=== PATIENT | male | born 1940 | race Caucasian/White ===

== ENCOUNTER 2024-07-29 11:20 | Inpatient (IN) | payer MEDICARE, OTHER, SELFPAY ==
[2024-07-29] VITALS (11 sets, daily range): BP systolic 101–146; BP diastolic 65–79; BMI 25.0
--- NOTE | 2024-07-29 13:05 | HPS.HSE ---
Family Physician
-
Family Physician: Stacey Guzman
Chief Complaint
-
Transfer from [facility]
History of Present Illness
83-year-old man transferred from [facility] for cardiac catheterization. Patient presented with intermittent chest pain for past several days prior to arrival. He also had exertional discomfort. Patient stated that he had severe pain in
his chest on [place] which prompted him to come to the hospital. He has been having some pains in the chest for the past week while working out in the gym.
Medical History
Past Medical History
Past Medical History: Reports Other
Additional Past Medical History:
Migraines, chronic back pain, COPD, angina, arthritis, smoldering myeloma
Past Surgical History: Reports Other
Additional Past Surgical History:
CABG at [facility] in 1999, appendectomy, knee surgery, Mohs procedure
Social History
Tobacco: Former Smoker
Alcohol: Daily (2 glasses of wine every day)
Drug: None
Living: With Family
Employment: Retired
Family History
Family History: Not pertinent
Allergies / Home Medications
Allergies reflects when Allergies were last updated in [employer].
Home Medications with original date entered in [employer]
Allergy/Medication List:
Allergies
Allergy/AdvReac Type Severity Reaction Status Date / Time
No Known Allergies Allergy Unverified 05/14/23 10:52
Home Medications
amlodipine 10 mg tablet 10 mg PO DAILY 05/14/23
aspirin 325 mg tablet 325 mg PO DAILY 05/14/23
atenolol 50 mg tablet 50 mg PO DAILY 05/14/23
atorvastatin 40 mg tablet (Lipitor) 40 mg PO QPM 05/14/23
famotidine 20 mg tablet (Pepcid AC Maximum Strength) 20 mg PO HS #1 tab 05/14/23
levothyroxine 50 mcg tablet 50 mcg PO DAILY 05/14/23
losartan 25 mg tablet 25 mg PO DAILY 05/14/23
Review of Systems
-
A 12 point ROS was completed and negative except as noted: Yes
Cardiac: Reports Chest Pain; Denies Palpitations
Physical Exam
Vital Signs
Vital Signs
Temp Resp Pulse Ox
97.7 F 18 96
07/29/24 11:32 07/29/24 11:32 07/29/24 11:32
Physical Exam
General: Comfortable
Respiratory: Clear
Cardiac: S1/S2, Regular Rhythm and Murmur (sm )
GI: Soft and Non Tender
Neuro: AO x 3 and Nonfocal/grossly intact
Psych: Intact Judgment/Insight
Impression/Plan
-
IMPRESSION/PLAN:
EKG sinus rhythm with first-degree AV block QTc 486
# [place]
Coronary artery disease-continue aspirin, statin, beta-alice, losartan
Patient was given aspirin, heparin drip in the ER and Nitropatch at [facility] he did have some ST depressions on the EKG in the ER
Cardiac cath April 2023 with creek vessel disease patent BAXTER, patent SVG to OM 2, patent graft and RPL 2, patent graft to PDA with luminal irregularities
Myocardial perfusion study April 2023 localized area of anteroapical scar and ischemia
24 negative amyloid scan
Echo April 2023 normal LV function, borderline RV function, mild RA dilatation, mild MR, moderate TR, mild pulmonary hypertension
For cardiac catheterization-timing per cardiology, Keep NPO
Admitted to IVU. Check EKG and troponin
IV Heparin gtt
Mechanical Product Design Engineer is Dr. Terry Lewis
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
# Mild MR, moderate TR
# Hypertension-continue losartan, atenolol and amlodipine
# Mild pulmonary hypertension
# Hypothyroidism-continue Synthroid
# COPD-stable
# CKD stage II
# Hyperlipidemia-continue statin
# History of migraines
# Carotid artery ultrasound 09/12/2022-small amount of plaque in the left carotid without stenosis. Right carotid without disease
# History of TIA-continue aspirin and statin
# Ex-smoker
# DVT prophylaxis- heparin
# CODE STATUS-Full CODE
Discussed with cardiology
Labs ordered
--- NOTE | 2024-07-29 13:38 | CM ---
Chart reviewed. Patient is independent of ADLS, lives with his in a 2 [address], 2 [address], 0 DME. Plan is for the patient to return home. CM to follow
--- NOTE | 2024-07-29 13:45 | W.PN.CARDCBS ---
Today's Communication / Plan
-
repeat labs now, IV hydration prior to cath this afternoon
Impression / Plan
-
This is a summary, see scanned cardiology consult
PCP: Stacey Guzman,
CDY: Terry Lewis MD
84-year-old male followed by Dr. Lewis who noted that a year ago that he started having increased symptoms of shortness of breath with exertion such as exercising at the gym. He underwent a cardiac catheterization that demonstrated stable known
disease with patent grafts. Medical management at that point. The patient states that he was actually pretty good up until yesterday when he was sitting in a movie theater and started to develop retrosternal chest discomfort that kept getting
worse he started getting clammy and he started having some discomfort go down his left arm at that point he thought something was wrong and came to the emergency room at [facility] on 07/27 for further evaluation. In the ED he was administered sublingual
nitroglycerin and started on nitroglycerin patch he does note that there was improvement in his symptoms. His troponin x3 was negative. He is transferred today for [facility].
Impression/Plan:
Acute coronary syndrome:
Patient has known coronary artery disease with ST-T wave changes on his presentation to the ED which resolved after nitrates and IV heparin. Discussed with the patient and feel repeat cardiac catheterization is warranted. He is transferred here
today for [facility]. Continue IV heparin, continue isosorbide, atenolol, amlodipine, ASA 81mg given this am
Hyperlipidemia - LDL 89 02/2024, Increase atorvastatin to 80 mg daily, add Zetia, check Lipid profile in am
Acute on chronic kidney disease stage 2 - Cr 1.15 -> 1.41 today, recheck BMP now, IV hydration as pt NPO for [facility]
PAST MEDICAL/SURGICAL HISTORY
Atrial fibrillation agueda-op
3-vessel coronary artery stenosis:
CAB: BAXTER to LAD and D1, SVG to OM1, SVG to PDA and LV branch of RCA
Mitral regurgitation mild
Tricuspid regurgitation moderate
Systemic hypertension
Pulmonary hypertension mild.
Chronic obstructive pulmonary disease moderate.
Colonic diverticulosis.
Chronic kidney disease, stage 2 creatinine 1.19.
Hyperlipidemia with low HDL
Adverse effect of drug therapy viagra induced headaches.
Endocrine disorder low testosterone level.
Neurologic disorder Migraines
Transient ischemic attack.
Nicotine dependence inactive
Male erectile disorder.
Gastrointestinal hemorrhage with increased aspirin
Carotid ultrasound 09/12/22: small amount of plaque in left carotid without stenosis
right carotid without disease-unchanged from 2019.
Cardiac catheterization was performed 05/14/23:
80% ostial LAD stenosis with 100% mid stenosis, D1-90% stenosis distal to BAXTER
75% proximal LCx
85% mid RCA stenosis with 60% stenosis of distal RCA and posterior branch
Patent BAXTER (sequential) to LAD+D1
Patent SVG to m2 with luminal irregularities
Patent graft to RPL2
Patent graft to PDA with luminal irregularities
149/17-LV
normal systolic function
Echocardiogram was performed 05/09/23-Normal LV function
borderline RV function
mild RA dilation
mild MR
moderate TR with mild PHT.
Cardiac Isotope Imaging:
Myocardial perfusion study conclusions 05/09/23: small localized area of bogdan-apical scar and ischemia
LVEF (76)%.
07/29/23: Negative Amyloid scan.
Progress Note - Fitter Placer
Subjective
Date of Service: July 29, 2024
denies cp, sob
Objective
Vital Signs and I&O:
Vital Signs
Temp Resp Pulse Ox
97.7 F 18 96
07/29/24 11:32 07/29/24 11:32 07/29/24 11:32
Vital Signs
Temp Resp Pulse Ox
97.7 F 18 96
07/29/24 11:32 07/29/24 11:32 07/29/24 11:32
Physical Exam
Physical Exam
NAD< AOX3
S1, S2, RRR, no murmur
CTAB, non labored, no wheeze
SNTND Bsx4
No LE edema, +2DP pulses b/l
[2024-07-29 14:08] LABS: Hematocrit 34.4 % (39.0-52.0); Mean Corp Hgb Conc. 34.9 g/dL (33.0-37.0); Mean Corpuscular Volume 97.5 fL (80.0-94.0); Platelet Count 202 10^3/uL (130-400); Red Blood Cell Count 3.53 10^6/uL (4.70-6.10); White Blood Cell Count 5.7 10^3/uL (4.8-10.8)
[2024-07-29] MEDS: NSS 500 IV (14:23)
[2024-07-29 14:33] LABS: Blood Urea Nitrogen 28 mg/dl (9-20); Calcium 9.5 mg/dl (8.4-10.2); Carbon Dioxide 20 mmol/L (22-30); Chloride 102 mmol/L (98-107); Estimated Creatinine Clearance 44 ml/min; Glucose 124 mg/dl (70-99); Magnesium 2.2 mg/dl (1.6-2.3); Potassium 4.5 mmol/L (3.5-5.1); Sodium 134 mmol/L (135-145); eGFR 53.84
[2024-07-29 14:34] LABS: Troponin I < 0.012 ng/ml
--- NOTE | 2024-07-29 14:51 | PTCARENOTE ---
Rec'd pt from transfer service. Pt ambulated from stretcher to bed w/ steady gait. Heparin gtt infusing at 800 units/hr. Pt currently has no complaints CP/discomfort. Oriented to room. Currently in bed; call doris w/in reach.
--- NOTE | 2024-07-29 14:56 | PTCARENOTE ---
Rec'd pt from transfer service. Pt ambulated from stretcher to bed w/ steady gait. Pt currently has no complaints CP/discomfort. Oriented to room. Currently in bed; call doris w/in reach.
[2024-07-29 16:39] LABS: ACT-LR - POC 313 Seconds (116-155)
--- NOTE | 2024-07-29 17:31 | ITS.CL.ANGIO ---
Instrumentation Specialist - Angioplasty
Angioplasty
Procedure Report:
CARDIAC CATHETERIZATION REPORT
Date of Procedure: 07/29/2024
Referring: Dr. Rhoda Muniz MD
Indication: unstable angina
PROCEDURE(S)
1. left heart catheterization
2. coronary angiography
3. bypass coronary angiography
4. PCI with stent to saphenous vein graft
ACCESS: 6F right distal left radial artery (closure: radial band)
CATHETERS
1. 6F DARLENE
2. 6F JL4
3. 6F JR4
4. 6F AL1 guide
HEMODYNAMIC DATA
LV 132/12 (EDP 26) mmHg
AO 137/69 (mean 89) mmHg
CORONARY ANGIOGRAPHY
Dominance: Right
LM: large vessel with mild disease
LAD: large vessel giving rise to a small D1 and large D2. There is moderate to severe calcific disease throughout the proximal to mid vessel. The D2 and mid to distal LAD fills briskly from the BAXTER. The D2 has severe proximal stenosis but also
fills briskly via antegrade flow.
LCx: large vessel giving rise to a large branching OM1. There is severe disease in the proximal LCx. There is TIMI3 flow in the larger superior limb and TIMI2 flow in the two smaller inferior limbs.
RCA: Large vessel giving rise to a large RPDA and large RPL system. There is severe disease in the proximal to mid vessel with the RPDA and RPL supplied via brisk flow from the SVG.
BYPASS GRAFT ANGIOGRAPHY:
BAXTER-D2-LAD: the BAXTER is taken as a pedicle and forms an anastomosis with the D2 and then the mid-LAD. The BAXTER is widely patent, providing brisk flow to the D2 and LAD.
SVG-RPDA: The SVG-RPDA is widely patent and provides antegrade flow to the RPDA and a large RPL system. There is a 30% stenosis in the proximal aspect of the graft.
SVG-OM1: The SVG to OM1 has a subtotal occlusion in the distal aspect of the graft with FELICIANO I-II flow distally.
PCI to SVG-OM1
Heparin was administered to achieve ACT greater than 300. The SVG to OM1 was engaged with a 6 [place] AL-1 guide catheter. There was felt to be insufficient distal landing zone for filter basket. A Runthrough wire was unable to pass the stenosis and
was left in place for support while a Whisper wire was used to successfully cross the stenosis and was placed in the distal OM1. Direct stenting was performed with a 3.5x22 mm [place] SUKI. Despite the focal nature of the lesion, this longer
stent was selected in order to minimize chance of distal embolization of graft material. The stent was deployed at 16 nurys. There was significant waist at the lesion site. This was post-dilated to 18 nurys for 30 seconds with a 3.5x15 mm NC balloon
with near resolution of the waist. There was observed to be excellent FELICIANO-3 flow in the OM system, with return of flow to a branch that previously had TIMI0 flow via SVG injection. The wire and guide were removed and a TR band placed. The patient
was loaded with 600 mg of Plavix.
RADIATION: dose 866 mGy; DAP 58.7 Gy*cm2; fluoroscopy time 15.8 min
CONCLUSIONS
1. Single-vessel obstructive coronary artery disease status post CABG. Culprit lesion for patient's unstable angina identified as a subtotally occluded SVG to OM1.
2. Successful PCI to the SVG to OM1 with placement of a 3.5 x 22 mm [place] drug-eluting stent postdilated to 18 mmHg with an NC balloon.
3. Elevated LV filling pressure and no aortic stenosis on hemodynamic pullback.
RECOMMENDATIONS
1. expectant management after cardiac catheterization via left distal radial approach
2. aggressive secondary prevention of coronary artery disease
3. DAPT with Plavix for 1 year
Copy to: Dr. Rhoda Lewis MD (textile pin worker); [ ] (PCP)
Signed: Oren Sultana MD, PhD
[2024-07-29] MEDS: LIPITOR 80 MG PO (17:50)
[2024-07-29] MEDS: TYLENOL 650 MG PO (20:51)
[2024-07-29] MEDS: PEPCID 20 MG PO (21:35)
--- NOTE | 2024-07-30 00:22 | PTCARENOTE ---
Rec'd pt at change of shift. Pt AAO*3, VSS, and in NSR on TELE monitor. Pt reports a mild headache and Tylenol given as ordered (see mar). Pt denies chest pain or discomfort and agrees to LUE restriction. Left hand radial site CDI. Pt currently
resting with call george in reach.
[2024-07-30 02:04] VITALS: BP 128/69
[2024-07-30 02:07] VITALS: BMI 24.9
[2024-07-30 02:47] LABS: Hematocrit 30.9 % (39.0-52.0); Hemoglobin 10.8 g/dL (13.0-18.0); Mean Corpuscular Hgb 34.4 pg (27.0-31.0); Mean Corpuscular Volume 98.4 fL (80.0-94.0); Mean Platelet Volume 10.1 fL (7.4-10.4); Platelet Count 192 10^3/uL (130-400); Red Blood Cell Count 3.14 10^6/uL (4.70-6.10); Red Cell Dist. Width 12.9 % (11.5-14.5); White Blood Cell Count 5.6 10^3/uL (4.8-10.8)
[2024-07-30 03:02] LABS: Blood Urea Nitrogen 23 mg/dl (9-20); Calcium 8.8 mg/dl (8.4-10.2); Carbon Dioxide 19 mmol/L (22-30); Chloride 105 mmol/L (98-107); Estimated Creatinine Clearance 48 ml/min; Glucose 93 mg/dl (70-99); HDL Cholesterol 43 mg/dl; LDL Cholesterol, Calculated 29 mg/dl; Potassium 4.1 mmol/L (3.5-5.1); Sodium 136 mmol/L (135-145); Total Cholesterol 109 mg/dl (50-199); Triglyceride 185 mg/dl (10-149); Very Low Density Lipoprotein 37 mg/dl (0-30); eGFR 59.26
[2024-07-30] MEDS: SYNTHROID 50 MCG PO (06:14)
[2024-07-30 07:21] VITALS: BP 129/68
[2024-07-30] MEDS: TENORMIN 50 MG PO (08:18)
[2024-07-30] MEDS: COZAAR 25 MG PO (08:18)
[2024-07-30] MEDS: PLAVIX 75 MG PO (08:18)
[2024-07-30] MEDS: LOW STRENGTH ASPIRIN 81 MG PO (08:18)
[2024-07-30] MEDS: NORVASC 10 MG PO (08:18)
--- NOTE | 2024-07-30 09:32 | CON.CAR ---
Consultation
Consultation Request
Date/Time Consultation Requested: 07/30/2024
Date/Time Consultation Performed: 07/30/2024
Requesting Provider: Dr. Emmy Lopez
Performing Provider: Dr. Eriberto Sultana
Reason for Consultation: unstable angina
Medical History
-
History of Present Illness:
84-year-old male with a past medical history significant for coronary artery disease status post CABG, hypertension, mild renal insufficiency, and chronic headaches, followed by Dr. Lewis, who noted that a year ago that he started having
increased symptoms of shortness of breath with exertion such as exercising at the gym. He underwent a cardiac catheterization that demonstrated stable known disease with patent grafts. Medical management was recommended at that point.
He was feeling well until the day prior to presentation when he was sitting in a movie theater and started to develop retrosternal chest discomfort with associated diaphoresis and L arm radiation. He presented to the emergency room at [facility] on 07/27
for further evaluation. In the ED he was administered sublingual nitroglycerin and started on nitroglycerin patch with improvement in his symptoms. His troponin x3 was negative. He is transferred 07/29/2023 today for [facility] which demonstrate new
sub-total occlusion of the SVG-OM. This was successfully stented DESx1 with hoahaoism of normal flow. Overnight, the patient has done well with no further symptoms.
Cardiac catheterization was performed 05/14/23:
80% ostial LAD stenosis with 100% mid stenosis, D1-90% stenosis distal to BAXTER
75% proximal LCx
85% mid RCA stenosis with 60% stenosis of distal RCA and posterior branch
Patent BAXTER (sequential) to LAD+D1
Patent SVG to m2 with luminal irregularities
Patent graft to RPL2
Patent graft to PDA with luminal irregularities
149/17-LV
normal systolic function
Echocardiogram was performed 05/09/23-Normal LV function
borderline RV function
mild RA dilation
mild MR
moderate TR with mild PHT.
Cardiac Isotope Imaging:
Myocardial perfusion study conclusions 05/09/23: small localized area of bogdan-apical scar and ischemia
LVEF (76)%.
07/29/23: Negative Amyloid scan.
Past Medical History
Past Medical History: CAD and HTN
Social History
Tobacco: Non-Smoker
Allergies / Home Medications
Allergy/AdvReac Type Severity Reaction Status Date / Time
No Known Allergies Allergy Unverified 05/14/23 10:52
�Medication �Instructions �Recorded �Confirmed �Type
amlodipine 10 mg tablet 10 mg PO DAILY 05/14/23 07/29/24 History
atenolol 50 mg tablet 50 mg PO DAILY 05/14/23 07/29/24 History
atorvastatin 40 mg tablet (Lipitor) 40 mg PO QPM 05/14/23 07/29/24 History
famotidine 20 mg tablet (Pepcid AC 20 mg PO HS #1 tab 05/14/23 07/29/24 Rx
Maximum Strength)
levothyroxine 50 mcg tablet 50 mcg PO DAILY 05/14/23 07/29/24 History
losartan 25 mg tablet 25 mg PO DAILY 05/14/23 07/29/24 History
aspirin 81 mg chewable tablet 81 mg PO DAILY 07/29/24 07/29/24 History
Review of Systems
-
Cardiac: Chest Pain and Diaphoresis
Physical Exam
Vital Signs
Temp Pulse Resp BP Pulse Ox
36.9 C 68 20 128/69 98
07/30/24 07:19 07/30/24 06:00 07/30/24 07:19 07/30/24 02:04 07/30/24 07:19
Lab Results
07/30/24 02:29
07/30/24 02:29
Troponin I Cancelled 07/29/24 19:15
Physical Exam
General: Well Developed
HEENT: Normocephalic
Respiratory: Clear
Cardiac: S1/S2 and Regular Rhythm
Skin: Warm
Neuro: AO x 3
Impression / Plan
-
84 year old man with prior CABG presenting with episode of typical angina at rest but normal troponin, found to have sub-total occlusion of SVG-OM status post sucessful PCI.
CAD s/p CABG, s/p PCI with SUKI to SVG-OM1: doing well post PCI, cont. ASA/plavix for 1 year, then ASA for life
Hyperlipidemia - LDL 29 today, continue current therapy
Hypertension - controlled, cont. current home regiman
Acute on chronic kidney disease stage 2 - received post-cath fluids, Cr returned to 1.2 this morning
patient is stable for discharge today and knows to follow up with Dr. Lewis in the next several weeks.
Data Reviewed
-
EKG: Tracing Personally Visualized and interpreted
Labs: Labs Reviewed by me
--- NOTE | 2024-07-30 09:59 | W.PN.HOSP.TC ---
Today's Communication/Plan
-
Discharge
Assessment / Plan
Assessment / Plan
CVS: S1-S2 normal, systolic murmur at apex
Chest: CTA B/L
Abdomen: Soft, NT / Bowel sounds present
Extremities: No edema, left radial site looks okay. Pulses good
CERTIFICATION TECHNICIAN: Non focal exam
Cardiac cath 6-87-vosypg-vessel obstructive coronary disease with culprit lesion SVG to OM1 stenosis/occlusion. Stent placed. Dual antiplatelets for 1 year. Patient aware
# [place]
Coronary artery disease-continue aspirin, Plavix, statin, beta-alice, losartan
Cardiac cath 70-[id number] obstructive coronary disease with culprit lesion SVG to OM1 stenosis/occlusion. Stent placed. Dual antiplatelets for 1 year. Patient aware
Cardiac cath April 2023 with [place] vessel disease patent BAXTER, patent SVG to OM 2, patent graft and RPL 2, patent graft to PDA with luminal irregularities
Myocardial perfusion study April 2023 localized area of anteroapical scar and ischemia
07-29-23 negative amyloid scan
Echo April 2023 normal LV function, borderline RV function, mild RA dilatation, mild MR, moderate TR, mild pulmonary hypertension
Cuff Matcher is Dr. Terry Lewis
# Anemia-iron studies and B12 pending
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
# Mild MR, moderate TR
# Hypertension-continue losartan, atenolol and amlodipine
# Mild pulmonary hypertension
# Hypothyroidism-continue Synthroid
# COPD-stable
# CKD stage II
# Hyperlipidemia-continue statin
# History of migraines
# Carotid artery ultrasound 09/12/2022-small amount of plaque in the left carotid without stenosis. Right carotid without disease
# History of TIA-continue Aspirin and Statin
# Ex-smoker
# DVT prophylaxis-was on heparin. Now off but going to be discharged
# CODE STATUS-Full CODE
Discussed with cardiology
Discussed with nursing
More than 30 minutes spent in discharge including
Final examination of the patient
Summarizing hospital stay
Instructions for continuing care to all relevant caregivers
Preparation of discharge records, prescriptions, and referral forms
Total time spent (in minutes): 34
Anticipated Discharge: Today
Subjective/Interval History
-
Date of Service: July 30, 2024
Objective Data
-
Labs:
Laboratory Results
07/30/24
02:29
WBC 5.6
Hgb 10.8 L
Hct 30.9 L
Plt Count 192
Sodium 136
Potassium 4.1
Chloride 105
Carbon Dioxide 19 L
BUN 23 H
Creatinine 1.2
Glucose 93
Calcium 8.8
Vital Signs:
Vital Signs
Temp Pulse Resp BP Pulse Ox
98.5 F 88 20 129/68 98
07/30/24 07:19 07/30/24 09:00 07/30/24 07:19 07/30/24 07:21 07/30/24 07:19
I&O
07/29/24 07/30/24 07/31/24
06:59 06:59 06:59
Intake Total 880 / 880 400 / 400
Output Total 775 / 775
Balance 105 / 105 400 / 400
[2024-07-30 11:05] LABS: Iron 150 ug/dl (49-181)
[2024-07-30 11:15] LABS: Percent Saturation 51 % (20-50); Total Iron Binding Capacity 291 ug/dl (261-462)
[2024-07-30 11:54] LABS: Vitamin B12 325 pg/ml (239-931)
[2024-07-30 11:59] VITALS: BP 135/66
--- NOTE | 2024-07-30 12:26 | W.DS.TRANS ---
Addendum entered and electronically signed by Emmy Lopez MD 07/31/24 08:40:
Dictation- [id number]
Original Note:
DC Summary - Track Liner Operator
-
Discharge Instructions:
Discharge Diagnosis/Procedures Unstable angina angioplasty with stent to vein
graft to OM
Anemia
Mild MR, moderate TR, hypertension
Hypothyroidism
Hyperlipidemia
Diet Low Cholesterol
Activity As tolerated
Driving Restrictions No driving for 24 hours
Blood Work CBC 1 month. B 12 level 3 months
Other Services Cardiac Rehab
Instructions:
Stand-Alone Forms: DC Instructions- Cath/EP Lab
Changes to Home Medications: Yes
Discharge Medications:
DC Medications w/original date entered in [employer]
amlodipine 10 mg tablet 10 mg PO DAILY Blood pressure #0 tabs 07/30/24
aspirin 81 mg chewable tablet 81 mg PO DAILY Blood clot prevention/tx #0 tabs 07/30/24
atenolol 50 mg tablet 50 mg PO DAILY Blood pressure #0 tabs 07/30/24
atorvastatin 80 mg tablet 80 mg PO QPM High cholesterol #30 tabs 07/30/24
clopidogrel 75 mg tablet 75 mg PO DAILY Blood clot prevention/tx #30 tabs 07/30/24
cyanocobalamin (vitamin B-12) 1,000 mcg capsule 1,000 mcg PO DAILY low normal B12 #30 caps 07/30/24
famotidine 20 mg tablet (Pepcid AC Maximum Strength) 20 mg PO HS Gastrointestinal issue #1 tab 07/30/24
levothyroxine 50 mcg tablet 50 mcg PO DAILY Thyroid #0 tabs 07/30/24
losartan 25 mg tablet 25 mg PO DAILY Heart disease/condition #0 tabs 07/30/24
Home Medication Changes
B12 is new for
Dose of atorvastatin increased
Plavix is new
Pending Results: No
--- NOTE | 2024-07-30 12:53 | PTCARENOTE ---
IV and tele removed. Discharge instructions reviewed w/ pt. Verbalizes understanding. Escorted via staff assist and WC to home.
== END 2024-07-30 13:00 | disposition home or self-care (01) | DRG 322 ==
LOC: IVU 11:20
PROVIDERS: ADMITTING PHYSICIAN Hospitalist; FAMILY PHYSICIAN Family Medicine; OTHER PHYSICIAN Student in an Organized Health Care Education/Training Program
PROC: B2131ZZ Fluoroscopy of Multiple Coronary Artery Bypass Grafts using Low Osmolar Contrast (ICD-10-PCS; 2024-07-29)
PROC: 027034Z Dilation of Coronary Artery, One Artery with Drug-eluting Intraluminal Device, Percutaneous Approach (ICD-10-PCS; 2024-07-29)
PROC: 4A023N7 Measurement of Cardiac Sampling and Pressure, Left Heart, Percutaneous Approach (ICD-10-PCS; 2024-07-29)
PROC: B2111ZZ Fluoroscopy of Multiple Coronary Arteries using Low Osmolar Contrast (ICD-10-PCS; 2024-07-29)
DX: I25.710 Atherosclerosis of autologous vein coronary artery bypass graft(s) with unstable angina pectoris (principal); T82.867A Thrombosis due to cardiac prosthetic devices, implants and grafts, initial encounter; G43.909 Migraine, unspecified, not intractable, without status migrainosus; G89.29 Other chronic pain; J44.9 Chronic obstructive pulmonary disease, unspecified; Y83.2 Surgical operation with anastomosis, bypass or graft as the cause of abnormal reaction of the patient, or of later complication, without mention of misadventure at the time of the procedure; Y92.9 Unspecified place or not applicable; M19.90 Unspecified osteoarthritis, unspecified site; D47.2 Monoclonal gammopathy; M54.9 Dorsalgia, unspecified; I44.0 Atrioventricular block, first degree; D64.9 Anemia, unspecified; I27.20 Pulmonary hypertension, unspecified; I08.1 Rheumatic disorders of both mitral and tricuspid valves; I48.91 Unspecified atrial fibrillation; N18.2 Chronic kidney disease, stage 2 (mild); I12.9 Hypertensive chronic kidney disease with stage 1 through stage 4 chronic kidney disease, or unspecified chronic kidney disease; E03.9 Hypothyroidism, unspecified; E78.5 Hyperlipidemia, unspecified; Z87.891 Personal history of nicotine dependence; Z79.890 Hormone replacement therapy; Z86.73 Personal history of transient ischemic attack (TIA), and cerebral infarction without residual deficits; Z95.1 Presence of aortocoronary bypass graft; Z79.82 Long term (current) use of aspirin
CPT/HCPCS: 80048; 80061; 82607; 82728; 83540; 83550; 83735; 84484; 85027; 85347; 85730; 87070; 93005; 93459; C1725; C1769; C1874; C1887; C1894; C9604; Q9967